=== PATIENT | male | born 1970 | race Caucasian/White ===

== ENCOUNTER 2016-05-29 06:44 | Emergency (ER) | payer OTHER ==
[2016-05-29 07:07] VITALS: TEMP 98.3; BMI 27.4
[2016-05-29] MEDS ORDERED: Albuterol/Ipratropium Neb 3 ML NEB NEB ONE (07:10)
[2016-05-29] MEDS ORDERED: METHYLPREDNISOLONE 125 MG/2 ML VIAL IV ONE (07:18)
[2016-05-29] MEDS ORDERED: LABETALOL 20 MG/4 ML SYRINGE IV ONE (07:20)
[2016-05-29] MEDS ORDERED: OXYCODONE HCL 5 MG TABLET PO ONE (07:20)
--- NOTE | 2016-05-29 07:20 | EDPRACDOC ---
- General Information Chief Complaint: Dyspnea/Resp distress Stated Complaint: COUGH/WHEEZING Time Seen by Provider: 05/29/16 07:09 Information Source: Patient Home Medications: Home Medications Metformin HCl [Metformin HCl ER] 1,000 mg PO BID 12/13/15 Oxycodone HCl [Roxicodone] 5 - 10 mg PO Q4 PRN #15 tablet 12/19/15 Promethazine [Phenergan] 25 mg PO Q8H PRN #15 tab 12/19/15 Albuterol Sulfate [Ventolin Hfa] 1 - 2 puff INH Q4H PRN #1 each 05/29/16 Azithromycin [Zithromax] 250 mg PO DAILY #6 tablet 05/29/16 Metoprolol Succinate 100 mg PO DAILY #30 tab.er.24h 05/29/16 Prednisone [Sterapred 10 mg/6 day pack] 21 tab PO DIR #1 pack 05/29/16 Allergies/Adverse Reactions: Allergies Allergy/AdvReac Type Severity Reaction Status Date / Time Penicillins Allergy Unknown Hives* Verified 05/29/16 07:04 - History of Present Illness HPI: PATIENT PRESENTS C/O COUGH FOR 4 DAYS. PRODUCTIVE WHITE SPUTUM. FEVER ON DAY1. NO N/V/D. SOB AND WHEEZING. 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 (Medication/ sudafed Dose/Time) ED Past Medical History - History Reviewed Yes Nurses notes reviewed and agree except as marked Travel Outside of [place] in the Last 3 Months?: No - Patient Medical History Neurological History: Denies: Cerebrovascular Accident, Seizures Cardiac History: Reports: Hypertension, Congestive Heart Failure, Heart Attack, Hypercholesterolemia Respiratory History: Reports: COPD GI/ History: Reports: Pancreatitis Psychological History: Denies: Depression, Anxiety, Substance Use Disorder Systemic History: Reports: Diabetes Additional Past Medical History: PANCREATITIS - Family Medical History Reports: Hypertension, Diabetes, Cardiac Disorders - Social Medical History Smoking Status: Heavy tobacco smoker (5 or more cigarettes/day or daily pipe/ cigar) Social History: Denies: Substance Use Disorder ETOH: None Substance Abuse: None Lives With: Family Lives In: Home EDM Review of Systems - Review of Systems Constitutional: Fever, Fatigue. negative: Chills, Loss of Appetite, Weakness Eyes: No Symptoms Reported. negative: Redness, Blurred Vision, Double Vision, Discharge, Pain, Light Sensitive, Photophobia Ears: No Symptoms Reported. negative: Pain, Hearing Loss, Drainage, Ear Pulling Throat: No Symptoms Reported. negative: Pain, Swelling Nose: No Symptoms Reported. negative: Congestion, Bleeding, Discharge, Injection, Swelling, Deformity, Ecchymosis, Tender, Abrasion, Laceration Mouth: No Symptoms Reported. negative: Pain, Drooling Respiratory: Cough, Shortness of Breath, Wheezing. negative: Barky Cough, Brassy Cough, Hemoptysis Cardiovascular: No Symptoms Reported. negative: Chest Pain, Palpitations, Syncope, Edema, Orthopnea, PND, Skin Mottling, Cyanosis Gastrointestinal: No Symptoms Reported. negative: Pain, Constipation, Nausea, Vomiting, Diarrhea, Melena, Formula Intolerance Genitourinary: No Symptoms Reported. negative: Dysuria, Hematuria, Frequency, Discharge, Bleeding, Testicular Pain, Neurological: No Symptoms Reported. negative: Headache, Dizziness, Seizure, Numbness, Weakness, Speech Difficulty, Gait Difficulty Musculoskeletal: No Symptoms Reported. negative: Neck, Chestwall, Ribs, Back, Shoulder, Arm, Elbow, Forearm, Wrist, Hand, Pelvis, Hip, Femur, Knee, Leg, Ankle , Foot Integumentary: No Symptoms Reported. negative: Itching, Rash, Bruising, Wound Allergic/Immunologic: No Symptoms Reported. negative: Hives, Itching Hematologic: No Symptoms Reported. negative: Lymphadenopathy, Easy Bruising, Easy Bleeding Endocrine: No Symptoms Reported. negative: Weight Gain, Weight Loss Psychiatric: No Symptoms Reported. negative: Anxiety, Depression, Hallucinations, Insomnia, Suicidal - Physical Exam Constitutional: Alert (Awake), Distress (MILD) Oriented to: Time, Person, Place Last recorded Vital Signs: Last Vital Signs Temp 98.3 F 05/29/16 07:04 Pulse 115 05/29/16 07:04 Resp 26 H 05/29/16 07:04 BP 257/142 H 05/29/16 07:04 Pulse Ox 93 05/29/16 07:04 Oxygen Pulse Oxygen Saturation 93 O2 Device Room Air Oxygen Flow Rate Fraction of Inspired Oxygen ( FIO2) - HEENT Head: Normal ( normocephalic) Eye Exam: Normal (PERRL, EOMI, Sclera white) Oropharynx: Normal (Pharynx:Moist without exudate,Gums-no swelling) Tympanic Membrane: Normal ENT EAC: Normal TMJ: Normal Nose: No Symptoms Reported (septum midline) Neck: Normal (FROM, trachea at midline) - Respiratory/Cardiovascular Respiratory: Diminished, Wheezes Cardiovascular: Tachycardia - GI Auscultation: Normal (NABS) Palpation: Normal (Soft,No rebound or guarding, non distended) Tenderness: Non tender Avalos's Sign: Negative - Musculoskeletal Back: Normal (Non-Tender) Extremities: Normal (Normal tone, Pulses 2+ No cyanosis or edema, FROM) - Integumentary Skin: Normal, Warm, Dry Lymphatics: Normal (no adenopathy) - Neurologic Memory Impaired: Normal Motor Function: Normal (Normal tone, Pulses 2+ No cyanosis or edema, FROM) Cranial Nerve: Normal (CN II-X11 intact sensation, strength 5/5) Cerebellar: Normal Mood Description: Normal Perception: Normal ED SOB MDM - Results Result Diagrams: 05/29/16 07:30 05/29/16 07:30 - EKG EKG #1 EKG Time: 07:13 Rate: bpm: 111 [place]: Normal Rhythm: ST Block: None Hypertrophy: LVH ST: Normal - Departure Yes I personally saw and evaluated the patient. Disposition: Home Condition: Good Final Diagnosis: Poorly-controlled hypertension, Non compliance w medication regimen, COPD exacerbation Upper respiratory infection Qualifiers: URI type: unspecified URI Qualified Code(s): J06.9 - Acute upper respiratory infection, unspecified Instructions: Upper Respiratory Infection (ED), Hypertension (ED) Education/Counseling Given To: Patient Education/Counseling Given Regarding: Diagnosis, Treatment, Prognosis, Follow Up Referrals: Candelaria Tuttle MD [Primary Care Provider] - One Week Prescriptions: Albuterol Sulfate [Ventolin Hfa] 1 - 2 puff INH Q4H PRN #1 each PRN Reason: SHORTNESS OF BREATH Azithromycin [Zithromax] 250 mg PO DAILY #6 tablet Metoprolol Succinate 100 mg PO DAILY #30 tab.er.24h Prednisone [Sterapred 10 mg/6 day pack] 21 tab PO DIR #1 pack
[2016-05-29 07:34] LABS: ABG Draw Site RRA; ALLEN'S TEST PASS; BEb -0.1 (+/- 2)
[2016-05-29 07:57] LABS: AUTOMATED BASOPHIL 0.5 % (0-2); AUTOMATED EOSINOPHIL 4.4 % (0-5); AUTOMATED LYMPH 40.5 % (17-44); AUTOMATED MONOCYTE 13.7 % (3-10); AUTOMATED NEUTROPHIL 40.9 % (45-76); MPV 9.3 fL (7.4-10.4)
[2016-05-29 08:06] LABS: BLOOD UREA NITROGEN 15 MG/DL (9-20); CALCIUM 9.3 MG/DL (8.4-10.2); CALCULATED OSMOLALITY 272 MOs/Kg (270-290); CHLORIDE 101 mEq/L (98-107); GLUCOSE 152 MG/DL (70-99); SODIUM LEVEL 139 mEq/L (137-146); TOTAL PROTEIN 8.1 G/DL (6.3-8.2)
--- NOTE | 2016-05-29 08:06 | DIRPT ---
CLINICAL DATA: Productive cough. EXAM: CHEST 2 VIEW COMPARISON: 12/19/2015. FINDINGS: Normal sized heart. Probable bone island in the anterior aspect of the left sixth rib, without significant change since 04/17/2015. Otherwise, clear lungs. Central peribronchial thickening. Lower thoracic spine degenerative changes. IMPRESSION: Moderate bronchitic changes with mild progression. Electronically Signed By: Jayce Castillo M.D. On: 05/29/2016 08:03
[2016-05-29 08:13] LABS: PARTIAL THROMB. TIME 31.9 SEC (22-35)
[2016-05-29] MEDS ORDERED: ENALAPRILAT 1.25 MG/ML VIAL IV ONE (08:24)
[2016-05-29] MEDS ORDERED: ALBUTEROL 0.083% 3 ML NEB NEB ONE (08:24)
[2016-05-29] MEDS ORDERED: LEVOFLOXACIN 750 MG TAB PO ONE (08:27)
[2016-05-29 09:09] VITALS: BP 184/111; PULSE 90
== END 2016-05-29 09:10 | disposition home or self-care (01) ==
LOC: ED 06:44
DX: J44.1 Chronic obstructive pulmonary disease with (acute) exacerbation (principal); J06.9 Acute upper respiratory infection, unspecified; I10 Essential (primary) hypertension; Z91.14 Patient's other noncompliance with medication regimen; E11.9 Type 2 diabetes mellitus without complications; E78.00 Pure hypercholesterolemia, unspecified; I50.9 Heart failure, unspecified; F17.200 Nicotine dependence, unspecified, uncomplicated
CPT/HCPCS: 36415; 36600; 71020; 80053; 82803; 83880; 84484; 85025; 85610; 85730; 87040; 93005; 94640; 96374; 96375; 99284; J2930; J3490; J7620